=== PATIENT | male | born 1935 | race Hispanic/Latino ===

== ENCOUNTER → 2021-06-24 | Outpatient (CLI) | payer MEDICARE, OTHER ==
[~2021-06-24] MED LIST: IOPAMIDOL 370 MG/ML 200 ML INFUS..BTL INJ ONE; SODIUM CHLORIDE 0.9% 100 ML ONE
[2021-06-24 12:27] LABS: CREATININE, SERUM 1.18 mg/dL (0.72-1.25)
== END ==
LOC: CT 11:12
PROVIDERS: ATTEND Internal Medicine Cardiovascular Disease
DX: I65.23 Occlusion and stenosis of bilateral carotid arteries (principal)
CPT/HCPCS: 36415; 70496; 70498; 82565; 84520; J7050; Q9967